=== PATIENT | female | born 1965 | race Caucasian/White ===

== ENCOUNTER → 2016-05-20 | Outpatient (CLI) | payer MEDICARE | END | disposition home or self-care (01) | LOC: LAB.O 14:22 | PROVIDERS: ATTEND Family Medicine | DX: R00.2 Palpitations (principal); R79.89 Other specified abnormal findings of blood chemistry; Z79.899 Other long term (current) drug therapy; Z01.89 Encounter for other specified special examinations; M06.89 Other specified rheumatoid arthritis, multiple sites ==

== ENCOUNTER → 2016-09-22 | Outpatient (CLI) | payer MEDICARE | END | disposition home or self-care (01) | LOC: GMAB 17:21 | PROVIDERS: ATTEND Family Medicine | DX: R10.13 Epigastric pain (principal) ==

== ENCOUNTER → 2016-09-23 | Outpatient (CLI) | payer MEDICARE ==
--- NOTE | 2016-09-24 09:47 | US ---
EXAM DESCRIPTION: Abdomen,Limited CLINICAL HISTORY: 51 years, Female, EPIGASTRIC PAIN, LIVER PANCREAS COMPARISON: None. FINDINGS: Examination difficult due to bowel gas. Gallbladder removed. Common bile duct 1.0 cm. Intrahepatic ducts not dilated. Liver 15 cm in length with coarse echotexture. Pancreas poorly visualized. Visualized portion of IVC is unremarkable. Right kidney 9.9 cm. IMPRESSION: Prior cholecystectomy. No biliary distention. Fatty liver. Electronically signed by: Maxime Kumari MD 09/24/2016 9:46 AM CDT
== END ==
LOC: US 09:11
PROVIDERS: ATTEND Family Medicine
DX: R10.13 Epigastric pain (principal); K76.0 Fatty (change of) liver, not elsewhere classified

== ENCOUNTER → 2017-06-01 | Outpatient (CLI) | payer MEDICARE ==
--- NOTE | 2017-06-01 12:07 | CT ---
EXAM DESCRIPTION: CT ABDOMEN AND PELVIS WITHOUT AND WITH CONTRAST CLINICAL HISTORY: RT LOWER QUAD ABD PAIN COMPARISON: Previous abdominal sonogram October 03, 2016 TECHNIQUE: CT of the abdomen and pelvis are performed prior to and during IV bolus administration of 100 mL of Isovue 300. No oral contrast. FINDINGS: The lung bases are clear of infiltrate. Liver is normal in size and parenchymal appearance on precontrast images. Gallbladder is surgically absent. 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 Spleen, pancreas, and right kidney are unremarkable. No renal stones. There is no lymphadenopathy, inflammation, or free fluid observed. After contrast, normal enhancement of liver and spleen, pancreas and kidneys and upper abdominal vessels. No renal mass on either side. No obstructive uropathy or other cause of hydronephrosis nephrosis. No aortic aneurysm. A few mildly prominent fluid-filled small bowel loops in the right upper quadrant are noted measuring up to 2.[address] PELVIS: Normal enhancement of pelvic vessels. No stones in the distal ureters or bladder. No inflammation around the appendix or cecum or terminal ileum. Question small appendix versus prominent appendiceal stump. Delayed postcontrast images show normal accumulation of iodinated contrast in the urinary collecting systems. Prominent left renal pelvis is noted suggesting mild left UPJ narrowing. Prominent caliber of the distal right ureter is seen without obstructing lesion. Positive contrast ureteral jets in the bladder. Coronal and sagittal reformatted images confirm the findings. Compared to previous sonogram from September 23, 2016, no major change is seen. The liver appeared echogenic suggesting fatty infiltration. On the present precontrast CT images, the liver density is slightly lower than expected consistent with mild to moderate diffuse hepatic steatosis. IMPRESSION: Findings consistent with mild hepatic steatosis. Anomalous left kidney as described. No acute process in the abdomen or pelvis. This exam was performed according to our departmental dose-optimization program, which includes automated exposure control, adjustment of the mA and/or kV according to patient size and/or use of iterative reconstruction technique. Total DLP equals 3681.38 mGycm. Electronically signed by: Krzysztof Ling MD 06/01/2017 12:06 PM CDT
== END ==
LOC: CT 10:37
PROVIDERS: ATTEND Family Medicine
DX: K76.0 Fatty (change of) liver, not elsewhere classified (principal); R10.31 Right lower quadrant pain

== ENCOUNTER → 2019-05-24 | Outpatient (CLI) | payer MEDICARE | LOC: GMAE 16:29 | PROVIDERS: ATTEND Family Medicine | DX: M06.9 Rheumatoid arthritis, unspecified (principal); Z79.899 Other long term (current) drug therapy ==